=== PATIENT | male | born 1950 | race Caucasian/White ===

== ENCOUNTER 2021-11-17 13:20 | Inpatient (IN) | payer BC, MEDICARE ==
[~2021-11-17] VITALS: Ht 177.8 cm; Wt 90.7 kg
--- NOTE | 2021-11-17 13:24 | NUR ---
Dr Cabezas at the bedside for MSE.
[2021-11-17] MEDS ORDERED: IV NORMAL SALINE 1000 ML BAG IV ONE (13:30)
--- NOTE | 2021-11-17 14:00 | NUR ---
2 RNs attempted to placed HL, but unable to. Dr Cabezas made aware. Pt is drinking water, states being very thirsty.
[2021-11-17 14:10] LABS: HEMATOCRIT 48.8 % (36.7-47.1); MEAN CORPUSCULAR HEMOGLOBIN 31.7 uug (23.8-33.4); MEAN CORPUSCULAR VOLUME 93.9 fL (73.0-96.2); PLATELET COUNT (AUTO) 247 K/uL (152-348)
[2021-11-17] MEDS ORDERED: LISI20TA30 PO (14:19)
[2021-11-17] MEDS ORDERED: ALLO100T PO (14:19)
[2021-11-17 14:24] LABS: CARBON DIOXIDE 26 mmol/L (21-32); CHLORIDE 106 mmol/L (98-107); CREATININE 1.7 mg/dL (0.6-1.3); GLUCOSE 103 mg/dL (74-106); POTASSIUM 4.5 mmol/L (3.5-5.1); THYROID STIMULATING HORMONE 0.936 mIU/mL (0.358-3.740); UREA NITROGEN, BLOOD 25 mg/dL (7-18)
[2021-11-17 14:28] LABS: ALANINE AMINOTRANSFERASE 27 U/L (16-63); ALKALINE PHOSPHATASE 73 U/L (50-136); ASPARTATE AMINOTRANSFERASE 13 U/L (15-37); BILIRUBIN,DIRECT 0.1 mg/dL (0.0-0.2); BILIRUBIN,TOTAL 0.7 mg/dL (0.2-1.0); TOTAL PROTEIN, SERUM 6.8 g/dL (6.4-8.2)
--- NOTE | 2021-11-17 14:50 | NUR ---
Called Yessica nursing hand silvering supervisor for Mid/PICC line placement.
--- NOTE | 2021-11-17 15:04 | NUR ---
Patient consented to be admitted to our hospital after talking to Dr Cabezas again.
--- NOTE | 2021-11-17 15:42 | NUR ---
Paged [facility] fot admission.
--- NOTE | 2021-11-17 15:50 | NUR ---
Jack RN, Hilda at the bedside.
--- NOTE | 2021-11-17 16:15 | NUR ---
Midline placed by Hilda WOODARD.
[2021-11-17] MEDS ORDERED: MAG HYDROX/AL HYDROX/SIMETH 30 ML LIQUID UDC ONE (16:27)
[2021-11-17] MEDS ORDERED: PANTOPRAZOLE SODIUM 40 MG VIAL ONE (16:27)
[2021-11-17] MEDS ORDERED: PANTOPRAZOLE SODIUM 40 MG VIAL IV ONE (16:30)
[2021-11-17] MEDS ORDERED: MAG HYDROX/AL HYDROX/SIMETH 30 ML LIQUID UDC PO ONE (16:30)
[2021-11-17 18:08] VITALS: BP 119/71
--- NOTE | 2021-11-17 18:32 | NUR ---
Patient is a 71 y/o male admitted to telemetry for syncopal episode. AO x 4. Sinus rhythm on the monitor with heart rate in the 90s. On room air saturating 97%. Patient able to ambulate to the restroom. Midline on right upper extremity flushing patent and intact. No shortness of breath, respiratory distress. Denies chest pain. Awaiting admission orders.
[2021-11-17] MEDS ORDERED: ZOLPIDEM 5 MG TABLET PO PRN (19:15)
[2021-11-17] MEDS ORDERED: ONDANSETRON 4 MG/2 ML VIAL IV PRN (19:15)
[2021-11-17] MEDS ORDERED: ACETAMINOPHEN 325 MG TABLET PO PRN (19:15)
[2021-11-17] MEDS ORDERED: IV NS 1000 ML 1,000 ML IV PRN (19:15)
--- NOTE | 2021-11-17 19:30 | NUR ---
Received patient lying in bed. AAOx4. In no acute distress. Denies any pain or SOB at this time. NSR on tele with HR of 97/min. Midline on right upper arm intact and patent with single lumen in place. Needs assessed and attended to. Safety measure initiated and call light within reached.
[2021-11-17 20:00] VITALS: BP 100/61
--- NOTE | 2021-11-17 21:50 | NUR ---
Dr Delgado into visit.
[2021-11-18 00:50] VITALS: BP 80/42
--- NOTE | 2021-11-18 00:50 | NUR ---
Patient noted with low BP- 80/42. Repeated couple of time and the lowest obtained was 66/39. Patient was place on Trendelenburg position. Pt remains AAOx4. Denies any headache or dizziness. Asymptomatic. On IVF NS at 70cc/hr and encourage to take PO fluids and done. Informed Dr. Dunham. Awaiting for any new order.
--- NOTE | 2021-11-18 01:27 | NUR ---
Obtained order from Dr Dunham to give patient 1L bolus NS. Order read back and will carry out.
[2021-11-18] MEDS ORDERED: IV NS 1000 ML 1,000 ML IV STA (01:28)
[2021-11-18 04:00] VITALS: BP 98/48
--- NOTE | 2021-11-18 06:09 | NUR ---
AAOx4. In no acute distress. Denies any pain or SOB. NSR on tele with HR of 71/min. Midline on right upper arm intact and patent. IVF infusing. Needs attended to and met. Safety measure maintained and call light within reached.
[2021-11-18 06:32] LABS: HEMATOCRIT 38.8 % (36.7-47.1); MEAN CORPUSCULAR HEMOGLOBIN 31.6 uug (23.8-33.4); MEAN CORPUSCULAR VOLUME 93.5 fL (73.0-96.2); PLATELET COUNT (AUTO) 177 K/uL (152-348)
[2021-11-18 06:42] LABS: BILIRUBIN,TOTAL 0.8 mg/dL (0.2-1.0); CREATININE 1.6 mg/dL (0.6-1.3); PHOSPHOROUS 2.6 mg/dL (2.5-4.9); POTASSIUM 4.2 mmol/L (3.5-5.1); TOTAL PROTEIN, SERUM 5.2 g/dL (6.4-8.2)
[2021-11-18] MEDS ORDERED: PANTOPRAZOLE SODIUM 40 MG TABLET.DR PO SCH (07:00)
[2021-11-18 09:00] VITALS: BP 125/65
[2021-11-18] MEDS ORDERED: ALLOPURINOL 100 MG TABLET PO SCH (09:00)
--- NOTE | 2021-11-18 10:37 | NUR ---
Pt is a/ox 4. Orthostatic BP supine: 107/59, sitting 125/65, standing 111/70. notified of results. Plan is to discharge home today. Pt does not complain of dizziness. He is ambulatory, PT eval completed. Comfort measures provided, will continue to monitor.
--- NOTE | 2021-11-18 11:23 | NUR ---
Pt has been discharged home, he was picked up by his via private car. IV and ID band removed. All discharge information and education given to pt and at bedside. Medications explained per MD order. All personal belongings at hand. Pt does not complain of dizziness, light headedness. He is stable on his feet and chose to ambulate to car with at side.
== END 2021-11-18 11:22 | disposition home or self-care (01) | DRG 915 ==
LOC: ER 13:21 → TELE3 17:15
PROVIDERS: ADMIT Internal Medicine; ATTEND Internal Medicine
PROC: 05H533Z Insertion of Infusion Device into Right Subclavian Vein, Percutaneous Approach (ICD-10-PCS; principal; 2021-11-17)
PROC: B546ZZA Ultrasonography of Right Subclavian Vein, Guidance (ICD-10-PCS; 2021-11-17)
DX: T88.6XXA Anaphylactic reaction due to adverse effect of correct drug or medicament properly administered, initial encounter (principal); N17.0 Acute kidney failure with tubular necrosis; R55 Syncope and collapse; E66.9 Obesity, unspecified; E86.0 Dehydration; H40.9 Unspecified glaucoma; M10.9 Gout, unspecified; T50.8X5A Adverse effect of diagnostic agents, initial encounter; Y84.8 Other medical procedures as the cause of abnormal reaction of the patient, or of later complication, without mention of misadventure at the time of the procedure; Y82.8 Other medical devices associated with adverse incidents; Y92.89 Other specified places as the place of occurrence of the external cause; C43.9 Malignant melanoma of skin, unspecified; Z79.899 Other long term (current) drug therapy; I10 Essential (primary) hypertension; Z20.822 Contact with and (suspected) exposure to COVID-19; Z68.28 Body mass index [BMI] 28.0-28.9, adult; Z85.820 Personal history of malignant melanoma of skin
CPT/HCPCS: 36415; 71045; 83735; 84100; 84443; 84484; 85025; 85730; 93005; A4663; C9113; G0378; J8499